=== PATIENT | female | born 1975 | race Caucasian/White ===

== ENCOUNTER 2023-04-09 16:38 | Emergency (ER) | payer BC ==
[~2023-04-09] VITALS: Ht 165.1 cm; Wt 84.0 kg
[2023-04-09 17:03] VITALS: TEMP 98.1
[2023-04-09 22:21] VITALS: BP 156/99; PULSE 77; RESP 16; O2SAT 95
== END 2023-04-09 22:22 | disposition home or self-care (01) ==
LOC: ER 16:40
DX: R25.2 Cramp and spasm (principal); F17.200 Nicotine dependence, unspecified, uncomplicated
CPT/HCPCS: 93971; 99284